=== PATIENT | male | born 1985 | race Caucasian/White ===

== ENCOUNTER 2017-01-10 11:37 | Emergency (ER) | payer OTHER ==
[~2017-01-10] VITALS: Ht 182.9 cm; Wt 99.8 kg
[2017-01-10 12:20] VITALS: BP 118/69
== END 2017-01-10 12:20 | disposition other institution (70) ==
LOC: ED 11:37
DX: R10.9 Unspecified abdominal pain (principal); R51 Headache; L40.9 Psoriasis, unspecified; Z98.890 Other specified postprocedural states